=== PATIENT | male | born 1970 | race Caucasian/White ===

== ENCOUNTER 2024-09-19 14:26 | Emergency (ER) | payer BC ==
[2024-09-19 14:42] VITALS: BP 130/73; PULSE 80; RESP 16; TEMP 98.4; BMI 25.7
[2024-09-19 16:43] LABS: ALBUMIN 4.4 g/dl (3.4-5.0); BILIRUBIN,TOTAL 0.5 mg/dl (0.2-1); CALCIUM 9.1 mg/dl (8.5-10.1); CREATININE 1.3 mg/dl (0.6-1.3); POTASSIUM 4.1 mmol/L (3.5-5.1); TOT PROT 6.5 g/dl (6.4-8.2)
[2024-09-19 16:51] LABS: ABSOLUTE IMMATURE GRANULOCYTES 0.01 x10^3/uL (0.0-0.031); BASOPHILS # 0.03 x10^3/uL (0.01-0.08); EOSINOPHIL % 1.8 % (0.8-7.0); HEMATOCRIT 28.1 % (40.1-51.0); HEMOGLOBIN 8.9 g/dL (13.7-17.5); MCHC 31.7 g/dl (32.3-36.5); MEAN CELL VOLUME 90.9 fl (79.0-92.2); MEAN PLT VOLUME 9.4 fl (9.4-12.4); MONOCYTE # 0.43 x10^3/uL (0.30-0.82); MONOCYTE % 7.8 % (5.3-12.2); PLATELET COUNT 412 x10^3/uL (163-337); RDW 12.3 % (12.2-16.1)
[2024-09-19] MEDS: SODIUM CHLORIDE 1,000 ML IV STA (16:58)
[2024-09-19 17:50] LABS: ABSOLUTE IMMATURE GRANULOCYTES 0.01 x10^3/uL (0.0-0.031); BASOPHILS # 0.06 x10^3/uL (0.01-0.08); EOSINOPHIL % 1.8 % (0.8-7.0); EOSINOPHILS # 0.11 x10^3/uL (0.04-0.54); HEMATOCRIT 25.9 % (40.1-51.0); HEMOGLOBIN 8.2 g/dL (13.7-17.5); MCHC 31.7 g/dl (32.3-36.5); MEAN CELL VOLUME 90.6 fl (79.0-92.2); MEAN PLT VOLUME 9.2 fl (9.4-12.4); MONOCYTE # 0.49 x10^3/uL (0.30-0.82); MONOCYTE % 8.1 % (5.3-12.2); PLATELET COUNT 367 x10^3/uL (163-337); RDW 12.3 % (12.2-16.1)
[2024-09-19 22:54] LABS: HIV INTERPRETATION NEGATIVE (NEGATIVE)
[2024-09-19 22:55] LABS: HCV DIAGNOSTIC IN-HOUSE W/RFLX NON-REACTIVE (NONREACTIVE)
== END 2024-09-19 18:30 | disposition home or self-care (01) ==
LOC: FER 14:26
PROC: 3E0337Z Introduction of Electrolytic and Water Balance Substance into Peripheral Vein, Percutaneous Approach (ICD-10-PCS; principal; 2024-09-19)
DX: D64.9 Anemia, unspecified (principal); R42 Dizziness and giddiness; K64.9 Unspecified hemorrhoids; R23.1 Pallor; R06.02 Shortness of breath; K62.5 Hemorrhage of anus and rectum
CPT/HCPCS: 36415; 71046-TC-FY; 80053; 82272; 84484; 85025; 86803; 87389; 93005; 99285-25